=== PATIENT | male | born 1995 | race Two or more races ===

== ENCOUNTER 2017-07-23 21:18 | Emergency (ER) | payer OTHER ==
[2017-07-23] MEDS ORDERED: NS 1,000 ML IV ONE (21:23)
--- NOTE | 2017-07-23 21:28 | EDPHY ---
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 He dropped the lid of something in a dish full of hydrofluoric acid and got a single drop splashed to his right cheek. He is wearing glasses. There is no eye exposure. No inhalation. He immediately washed his face with water. When staff at the lab saw this they thought he had hydrofluoric acid over his entire face. He has taken this showers and decontaminated and 911 was called. He was given calcium gluconate paced to his face and decontaminated again. He is also given 0.3 millimoles of IV calcium gluconate. This was dilute 10% hydrochloric acid. The patient has no complaints and states that he does not have any pain or burning sensation. He thinks that this is significantly over blown. REVIEW OF SYSTEMS: Constitutional: denies: chills, fever, recent illness, recent injury EENTM: denies: blurred vision, double vision, nose congestion Respiratory: denies: cough, shortness of breath Cardiac: denies: chest pain, irregular heart rate, lightheadedness, palpitations Gastrointestinal/Abdominal: denies: abdominal pain, diarrhea, nausea, vomiting, blood streaked stools Genitourinary: denies: dysuria, frequency, hematuria, pain Musculoskeletal: denies: joint pain, muscle pain Skin: denies: lesions, rash, jaundice, bruising Neurological: denies: headache, numbness, paresthesia, tingling, dizziness, weakness Hematologic/Lymphatic: denies: blood clots, easy bleeding, easy bruising Immunologic/allergic: denies: HIV/AIDS, transplant EXAM: GENERAL: Well-appearing, well-nourished and in no acute distress. HEAD: Atraumatic, normocephalic. EYES: Pupils equal round and reactive to light, extraocular movements intact, sclera anicteric, conjunctiva are normal. ENT: TMs normal, nares patent, oropharynx clear without exudates. Moist mucous membranes. NECK: Normal range of motion, supple without lymphadenopathy or JVD. LUNGS: Breath sounds clear to auscultation bilaterally and equal. No wheezes rales or rhonchi. HEART: Regular rate and rhythm without murmurs, rubs or gallops. ABDOMEN: Soft, nontender, normoactive bowel sounds. No guarding, no rebound. No masses appreciated. BACK: No CVA tenderness, no spinal tenderness, step-offs or deformities EXTREMITIES: Normal range of motion, no pitting or edema. No clubbing or cyanosis. NEUROLOGICAL: Cranial nerves II through XII grossly intact. Normal speech, normal gait. 5/5 strength, normal movement in all extremities, normal sensation PSYCH: Normal mood, normal affect. SKIN: Warm, dry, normal turgor, no visible rashes or lesions. Source: Patient, EMS - Medical/Surgical History Hx Asthma: No Hx Chronic Respiratory Disease: No Hx Diabetes: No Hx Cardiac Disease: No Hx Renal Disease: No Hx Cirrhosis: No - Family History Significant Family History: No pertinent family hx - Social History Alcohol Use: Sober Drug Use: None Constitutional: Initial Vital Signs Temperature (C) 36.8 C 07/23/17 21:24 Heart Rate 58 L 07/23/17 21:24 Respiratory Rate 18 07/23/17 21:24 Blood Pressure 111/71 07/23/17 21:24 O2 Sat (%) 99 07/23/17 21:24 O2 Delivery Mode Room Air Allergies/Adverse Reactions: No Known Allergies Allergy (Unverified 07/23/17 21:24) Medical Decision Making ED Course/Re-evaluation: Patient has absolutely no signs of injury on exam. He states that he had 1 drop of dilute hydrofluoric acid on his face that he immediately washed off. No burning. No sloughing. No inhalation. He was treated with calcium gluconate paste and IV injection by paramedics according to the [facility] protocol. Will obtain lab work to evaluate his electrolytes now that he has received calcium gluconate. 9:50 p.m. I discussed the case with poison control. His case number is [id number]. They suggest that this is a very minor exposure and likely could be treated at home. His electrolytes are reassuring. They did a recommend a 6 hr observation and repeat chemistries. 11:00 p.m. care transferred to Dr. Toshia West. Patient remains asymptomatic. 11:10 p.m. the patient remains asymptomatic. He does not wish to wait any longer or have repeat testing. He understands the risks involved. He declines further observation. We discussed indications for returning. He does not have any signs of burn or adkins on his face. No vision changes. No respiratory difficulty. I will discharge him at this time. Differential Diagnosis: Partial list of the Differential diagnosis considered include but were not limited to; acid exposure, hypocalcemia, hyperkalemia and although unlikely based on the history and physical exam, I also considered arrhythmia, trauma. I discussed these differential diagnoses and the plan with the patient as well as the usual and expected course. The patient understands that the diagnosis is provisional and that in medicine we are not always correct and that further workup is often warranted. Usual and customary warnings were given. All of the patient's questions were answered. The patient was instructed to return to the emergency department should the symptoms at all worsen or return, otherwise to followup with the physician as we discussed. - Data Points Laboratory Results: Laboratory Results 07/23/17 21:20 07/23/17 21:20 Medications Given: Discontinued Medications Sodium Chloride (Ns) 1,000 mls @ 0 mls/hr IV EDNOW ONE; Wide Open PRN Reason: Protocol Stop: 07/23/17 21:24 Last Admin: 07/23/17 21:29 Dose: 1,000 mls Departure - Departure Disposition: Home, Routine, Self-Care Clinical Impression: Accidental exposure to hydrofluoric acid Condition: Fair Instructions: Chemical Skin Burn (ED) Referrals: Patient,NotPresent [Unknown] - As per Instructions RE Alex,. [Clinic] - As per Instructions
[2017-07-23 21:33] LABS: % IMMATURE GRANULYOCYTES 0.3 % (0.0-1.1); ABSOLUTE IMMATURE GRANULOCYTES 0.03 10^3/uL (0.00-0.10); ADD DIFF? NO; ADD MORPH? NO; ADD SCAN? NO; ATYPICAL LYMPHOCYTE FLAG 0 (0-99); FRAGMENT RBC FLAG 20 (0-99); HEMATOCRIT 48.2 % (40.0-51.0); HEMOGLOBIN 16.5 g/dL (13.7-17.5); LEFT SHIFT FLG 0 (0-99); LIPEMIA HEMOLYSIS FLAG 90 (0-99); MEAN CELL HEMOGLOBIN 30.6 pg (27.9-34.1); MEAN CELL HEMOGLOBIN CONCENTR. 34.2 g/dL (32.4-36.7); MEAN CELL VOLUME 89.4 fL (81.5-99.8); MEAN PLATELET VOLUME 10.3 fL (8.7-11.7); PLATELET CLUMPS FLAG 10 (0-99); PLATELET COUNT 274 10^3/uL (150-400); RED BLOOD CELL COUNT 5.39 10^6/uL (4.40-6.38); RED CELL DISTRIBUTION WIDTH 13.3 % (11.5-15.2)
[2017-07-23 21:49] LABS: ALANINE AMINOTRANSFERASE 41 IU/L (21-72); ALBUMIN 5.3 g/dL (3.5-5.0); ALKALINE PHOSPHATASE 100 IU/L (38-126); ANION GAP 18 mEq/L (8-16); ASPARTATE AMINOTRANSFERASE 31 IU/L (17-59); BILIRUBIN,TOTAL 1.6 mg/dL (0.1-1.4); BILIRUBIN-CONJUGATED 0.3 mg/dL (0.0-0.5); BILIRUBIN-UNCONJUGATED 1.3 mg/dL (0.0-1.1); CALCIUM 9.6 mg/dL (8.5-10.4); CARBON DIOXIDE 24 mEq/l (22-31); CHLORIDE 101 mEq/L (97-110); GLOMERULAR FILTRATION RATE > 60; GLUCOSE 89 mg/dL (70-100); POTASSIUM 3.7 mEq/L (3.5-5.2); SODIUM 143 mEq/L (134-144); TOTAL PROTEIN 8.9 g/dL (6.3-8.2)
[2017-07-23 23:26] VITALS: BP 125/64; PULSE 79; RESP 22; TEMP 97.9; O2SAT 96
== END 2017-07-23 23:25 | disposition home or self-care (01) ==
DX: T54.2X1A Toxic effect of corrosive acids and acid-like substances, accidental (unintentional), initial encounter (principal); E86.9 Volume depletion, unspecified